=== PATIENT | female | born 1995 | race African-American/Black ===

== ENCOUNTER 2020-03-09 10:13 | Emergency (ER) | payer MEDICAID ==
[~2020-03-09] VITALS: Ht 160 cm; Wt 84.0 kg
[2020-03-09 10:35] VITALS: BP 134/80
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
[2020-03-09] MEDS ORDERED: ACETAMINOPHEN 500 MG TABLET PO ONE (12:45)
[2020-03-09] MEDS ORDERED: IBUPROFEN 200 MG TABLET. PO ONE (12:45)
== END 2020-03-09 12:41 | disposition home or self-care (01) ==
LOC: ER 10:13
DX: S09.8XXA Other specified injuries of head, initial encounter (principal); M54.2 Cervicalgia; Z98.890 Other specified postprocedural states; Y08.89XA Assault by other specified means, initial encounter; Y93.89 Activity, other specified; Y92.89 Other specified places as the place of occurrence of the external cause; Y99.8 Other external cause status
CPT/HCPCS: 70450; 72040; 81025; 99284